=== PATIENT | male | born 1940 | race Caucasian/White ===

== ENCOUNTER 2017-10-06 19:19 | Observation (INO) | payer MEDICARE, OTHER ==
[2017-10-06 19:19] VITALS: BMI 29.0
[2017-10-06 20:56] LABS: BASO # 0.1 K/uL (0.0-0.2); BASO % 1.1 % (0.0-2.0); EOS # 0.1 K/uL (0.0-0.7); EOS % 2.5 % (0.0-4.0); HEMOGLOBIN 12.9 g/dL (12.0-18.0); LYMPH # 1.8 K/uL (1.0-4.3); LYMPH % 34.3 % (20.0-40.0); MEAN CELL VOLUME 89.8 fl (80.0-94.0); MEAN CORPUSCULAR HEMOGLOBIN 30.5 pg (27.0-31.0); MEAN CORPUSCULAR HGB CONC 33.9 g/dL (33.0-37.0); MEAN PLATELET VOLUME 7.4 fl (7.2-11.7); MONO # 0.3 K/uL (0.0-0.8); MONO % 6.3 % (0.0-10.0); NEUT # 2.9 K/uL (1.8-7.0); NEUT % 55.8 % (50.0-75.0); RBC 4.22 Mil/uL (4.40-5.90); RED CELL DISTRIBUTION WIDTH 13.4 % (11.5-14.5); WHITE BLOOD COUNT 5.2 K/uL (4.8-10.8)
[2017-10-06 21:00] LABS: INR 0.9; PROTHROMBIN TIME 10.4 Seconds (9.8-13.1)
[2017-10-06 21:10] LABS: PARTIAL THROMBOPLASTIN TIME 31.9 Seconds (25.6-37.1)
[2017-10-06 21:12] LABS: BLOOD UREA NITROGEN 18 mg/dl (9-20); CALCIUM 9.2 mg/dL (8.4-10.2); GFR AFRICAN-AMERICAN > 60; GFR NON-AFRICAN AMERICAN > 60
--- NOTE | 2017-10-06 21:20 | ED PDOC ---
HPI: Chest Pain Time Seen by Provider: 10/06/17 19:37 Chief Complaint (Nursing): Chest Pain Chief Complaint (Provider): Chest Pain History Per: Patient History/Exam Limitations: no limitations Onset/Duration Of Symptoms: Days (x2) Current Symptoms Are (Timing): Still Present Additional Complaint(s): 76 year old male with pmHx of HTN, HCL and prostate cancer, arrives to ED with complaints of constant chest pain radiating to back ongoing for 2 days. He reports associated dizziness, feeling clammy and pain with breathing. He denies any cough or chills. Patient reports compliance with mediations. PMD: none provided Past Medical History Reviewed: Historical Data, Nursing Documentation, Vital Signs Vital Signs: Last Vital Signs Temp 98.3 F 10/07/17 00:11 Pulse 71 10/07/17 00:11 Resp 15 10/07/17 00:11 BP 155/82 H 10/07/17 00:11 Pulse Ox 95 10/07/17 00:11 - Medical History PMH: HTN, Hypercholesterolemia Denies: Chronic Kidney Disease - Surgical History Surgical History: No Surg Hx - Family History Family History: States: Unknown Family Hx - Immunization History Hx Tetanus Toxoid Vaccination: No Hx Influenza Vaccination: Yes Hx Pneumococcal Vaccination: Yes - Home Medications Home Medications: Ambulatory Orders Medication Instructions Recorded Atorvastatin [Lipitor] 10 mg PO DAILY 05/25/13 Enzalutamide [Xtandi] 40 mg PO DAILY 10/06/17 Lisinopril [Zestril] 10 mg PO DAILY 10/07/17 - Allergies Allergies/Adverse Reactions: Allergies Allergy/AdvReac Type Severity Reaction Status Date / Time No Known Allergies Allergy Verified 05/25/13 11:14 Review of Systems ROS Statement: Except As Marked, All Systems Reviewed And Found Negative Constitutional: Positive for: Other (clammy). Negative for: Chills Cardiovascular: Positive for: Chest Pain Respiratory: Positive for: Pleuritic Pain. Negative for: Cough Musculoskeletal: Positive for: Back Pain Neurological: Positive for: Dizziness Physical Exam - Reviewed Nursing Documentation Reviewed: Yes Vital Signs Reviewed: Yes - Physical Exam Appears: Positive for: Well, Non-toxic, No Acute Distress Head Exam: Positive for: ATRAUMATIC, NORMAL INSPECTION, NORMOCEPHALIC Skin: Positive for: Normal Color Eye Exam: Positive for: Normal appearance, EOMI, PERRL ENT: Positive for: Normal ENT Inspection Neck: Positive for: Normal Cardiovascular/Chest: Positive for: Regular Rate, Rhythm. Negative for: Murmur , Bradycardia, Tachycardia Respiratory: Positive for: Normal Breath Sounds. Negative for: Wheezing, Respiratory Distress Gastrointestinal/Abdominal: Positive for: Normal Exam, Soft. Negative for: Tenderness Back: Positive for: Normal Inspection. Negative for: L CVA Tenderness, R CVA Tenderness Extremity: Positive for: Normal ROM. Negative for: Pedal Edema, Calf Tenderness Neurologic/Psych: Positive for: Alert, cuff stitcher II-XII (grossly intact), Oriented. Negative for: Motor/Sensory Deficits - Laboratory Results Result Diagrams: 10/06/17 20:48 10/06/17 20:48 - ECG ECG: Positive for: Interpreted By Me ECG Rhythm: Positive for: Normal QRS, Normal ST Segment, Sinus Rhythm Rate: 75 O2 Sat by Pulse Oximetry: 96 (RA) Pulse Ox Interpretation: Normal Medical Decision Making Medical Decision Making: A/P: 76 y/o male, pmHx of HTN and HCL, presenting with chest and back pain. Patient has normal vitals, well-appearing. Concern for ACS vs. PE vs. musculoskeletal pain vs. pneumothorax. Will obtain bloodwork and re-evaluate. -- CTA chest PE protocol --EKG --BMP --Troponin I --CBC --D Dimer --PTT --PT --CXR --Aspirin 162mg PO --------- Time: 2232 --CTA chest FINDINGS: Pulmonary arteries: Unremarkable. No pulmonary embolism. Aorta: The aorta demonstrates mild atherosclerotic calcification. No thoracic aortic aneurysm. Lungs: There is subpleural atelectasis of the dependent portions of the lungs. No mass. Pleural space: Unremarkable. No significant effusion. No pneumothorax. Heart: Coronary artery calcification. No significant pericardial effusion. No evidence of RV dysfunction. Bones/joints: No acute fracture. No dislocation. Soft tissues: Unremarkable. Lymph nodes: Unremarkable. No enlarged lymph nodes. IMPRESSION: No acute findings. No pulmonary embolism. 2235 Given patient's cardiac risk factors, age, and symptoms, will place in OBS for continuous cardiac monitoring, serial troponins. Case discussed with Dr. Melvin Scribe Attestation: Documented by Brenda Bernardo, acting as a scribe for Greg Castro MD. Provider Scribe Attestation: All medical record entries made by the Scribe were at my direction and personally dictated by me. I have reviewed the chart and agree that the record accurately reflects my personal performance of the history, physical exam, medical decision making, and the department course for this patient. I have also personally directed, reviewed, and agree with the discharge instructions and disposition. Disposition - Clinical Impression Clinical Impression: Chest pain - Disposition Disposition Time: 22:36 Condition: FAIR
[2017-10-06] MEDS ORDERED: Iodixanol 320 MG/ML 100 ML BOTTLE IV ONE (21:41)
[2017-10-06] MEDS ORDERED: Sodium Chloride 0.9% 50 ML IV ONE (21:41)
[2017-10-07] MEDS ORDERED: DiphenhydrAMINE 50 mg/ml Inj ONE (00:29)
[2017-10-07] MEDS ORDERED: Oxycodone/Acetaminophen 5/325 mg Tab PO PRN (01:11)
[2017-10-07] MEDS ORDERED: Oxycodone/Acetaminophen 5/325 mg Tab ONE (06:00)
[2017-10-07 07:10] LABS: HDL CHOLESTEROL 29 MG/DL (30-70)
[2017-10-07 07:21] LABS: LDL CHOLESTEROL 59 mg/dL (0-129)
[2017-10-07 07:27] LABS: T4 5.54 ug/dl (5.5-11.0)
--- NOTE | 2017-10-07 08:12 | CP.PCM.HP ---
History of Present Illness - History of Present Illness History of Present Illness: 76 YR OLD MALE WHO PRESENTED TO THE ER BECAUSE OF L SIDED PRECORDIAL CHEST PAINS X 2 DAYS,RADIATING TO THE L ARM.DENIES TRAUMA,PALPITATIONS OR SOB.STILL HAS SOME CHEST DISCOMFORT TODAY. HX OF HYPERTENSION AND HYPERLIPIDEMIA. NON-COMPLIANT TO DIET. UNREMARKABLE FAMILY HISTORY. FORMER SMOKER--QUIT MORE THAN 40 YRS AGO. Present on Admission - Present on Admission Any Indicators Present on Admission: Yes Past Patient History - Past Medical History & Family History Past Medical History?: Yes - Past Social History Smoking Status: Former Smoker - CARDIAC Hx Hypercholesterolemia: Yes Hx Hypertension: Yes - PULMONARY Hx Respiratory Disorders: No - NEUROLOGICAL Hx Neurological Disorder: No - HEENT Hx HEENT Problems: No - RENAL Hx Chronic Kidney Disease: No - ENDOCRINE/METABOLIC Hx Endocrine Disorders: No - HEMATOLOGICAL/ONCOLOGICAL Hx Cancer: Yes (prostate ca) - INTEGUMENTARY Hx Dermatological Problems: No - MUSCULOSKELETAL/RHEUMATOLOGICAL Hx Falls: No - GASTROINTESTINAL Hx Gastrointestinal Disorders: No - GENITOURINARY/GYNECOLOGICAL Hx Genitourinary Disorders: Yes Hx Prostate Cancer: Yes (malignant neoplasam) Other/Comment: BPH - PSYCHIATRIC Hx Psychophysiologic Disorder: No Hx Substance Use: No - SURGICAL HISTORY Hx Surgeries: Yes Other/Comment: Laser procedure done by urologist 2010 - ANESTHESIA Hx Anesthesia: Yes Hx Anesthesia Reactions: No Hx Malignant Hyperthermia: No Meds Allergies/Adverse Reactions: Allergies Allergy/AdvReac Type Severity Reaction Status Date / Time No Known Allergies Allergy Verified 05/25/13 11:14 Physical Exam - Constitutional Appears: Non-toxic Additional comments: MILD L SIDED CHEST PAIN - Head Exam Head Exam: ATRAUMATIC, NORMAL INSPECTION, NORMOCEPHALIC - Eye Exam Eye Exam: EOMI, Normal appearance, PERRL Pupil Exam: NORMAL ACCOMODATION, PERRL - ENT Exam ENT Exam: Mucous Membranes Moist, Normal Exam - Neck Exam Neck exam: Positive for: Normal Inspection - Respiratory Exam Respiratory Exam: Clear to Auscultation Bilateral, NORMAL BREATHING PATTERN - Cardiovascular Exam Cardiovascular Exam: REGULAR RHYTHM - GI/Abdominal Exam GI & Abdominal Exam: Normal Bowel Sounds, Soft. absent: Tenderness - Rectal Exam Rectal Exam: NORMAL INSPECTION - Extremities Exam Extremities exam: Positive for: normal inspection - Back Exam Back exam: NORMAL INSPECTION - Neurological Exam Neurological exam: Alert, CN II-XII Intact, Normal Gait, Oriented x3, Reflexes Normal - Psychiatric Exam Psychiatric exam: Normal Affect, Normal Mood - Skin Skin Exam: Dry, Intact, Normal Color, Warm Results - Vital Signs Recent Vital Signs: Last Vital Signs Temp 98.5 F 10/07/17 06:03 Pulse 68 10/07/17 06:03 Resp 17 10/07/17 06:03 BP 153/76 H 10/07/17 06:03 Pulse Ox 96 10/07/17 06:03 - Labs Result Diagrams: 10/06/17 20:48 10/06/17 20:48 Labs: Laboratory Results - last 24 hr 10/06/17 10/06/17 10/06/17 20:48 20:48 20:48 WBC 5.2 RBC 4.22 L Hgb 12.9 Hct 37.9 MCV 89.8 MCH 30.5 MCHC 33.9 RDW 13.4 Plt Count 216 MPV 7.4 Neut % (Auto) 55.8 Lymph % (Auto) 34.3 [place] % (Auto) 6.3 Eos % (Auto) 2.5 Baso % (Auto) 1.1 Neut # (Auto) 2.9 Lymph # (Auto) 1.8 [place] # (Auto) 0.3 Eos # (Auto) 0.1 Baso # (Auto) 0.1 PT 10.4 INR 0.9 APTT 31.9 D-Dimer, Quantitative 505 H Sodium 139 Potassium 4.4 Chloride 102 Carbon Dioxide 25 Anion Gap 16 BUN 18 Creatinine 0.8 Est GFR ( Amer) > 60 Est GFR (Non-Af Amer) > 60 Random Glucose 110 Calcium 9.2 Troponin I < 0.0120 Triglycerides Cholesterol LDL Cholesterol Direct HDL Cholesterol Thyroxine (T4) TSH 3rd Generation 10/07/17 05:30 WBC RBC Hgb Hct MCV MCH MCHC RDW Plt Count MPV Neut % (Auto) Lymph % (Auto) [place] % (Auto) Eos % (Auto) Baso % (Auto) Neut # (Auto) Lymph # (Auto) [place] # (Auto) Eos # (Auto) Baso # (Auto) PT INR APTT D-Dimer, Quantitative Sodium Potassium Chloride Carbon Dioxide Anion Gap BUN Creatinine Est GFR ( Amer) Est GFR (Non-Af Amer) Random Glucose Calcium Troponin I < 0.0120 Triglycerides 518 H Cholesterol 186 LDL Cholesterol Direct 59 HDL Cholesterol 29 L Thyroxine (T4) 5.54 TSH 3rd Generation 3.55 Assessment & Plan - Assessment and Plan (Free Text) Assessment: CHEST PAIN--R/O ACUTE CORONARY SYNDROME HYPERTENSION MIXED HYPERLIPIDEMIA Plan: CONTINUE RX ORDERED CARDIOLOGY EVALUATION - Date & Time Date: 10/07/17 Time: 08:15
[2017-10-07] MEDS ORDERED: Enoxaparin 40 mg Syringe SC SCH (09:00)
--- NOTE | 2017-10-07 09:17 | CARD ---
APPROVED REPORT Date of service: 10/06/2017 EKG Measurement Heart [id number] <Conclusion> Normal sinus rhythm Normal ECG
--- NOTE | 2017-10-07 11:25 | CP.PCM.DIS ---
Provider - Provider Date of Admission: 10/06/17 22:36 Attending physician: Vikram Melvin MD Time Spent in preparation of Discharge (in minutes): 30 Diagnosis - Discharge Diagnosis (1) Hyperlipidemia Status: Acute (2) Hypertension Status: Acute (3) Chest pain Status: Acute (4) Prostate cancer Status: Acute Hospital Course - Lab Results Lab Results: Most Recent Lab Values WBC 5.2 K/uL (4.8-10.8) 10/06/17 20:48 RBC 4.22 Mil/uL (4.40-5.90) L 10/06/17 20:48 Hgb 12.9 g/dL (12.0-18.0) 10/06/17 20:48 Hct 37.9 % (35.0-51.0) 10/06/17 20:48 MCV 89.8 fl (80.0-94.0) 10/06/17 20:48 MCH 30.5 pg (27.0-31.0) 10/06/17 20:48 MCHC 33.9 g/dL (33.0-37.0) 10/06/17 20:48 RDW 13.4 % (11.5-14.5) 10/06/17 20:48 Plt Count 216 K/uL (130-400) 10/06/17 20:48 MPV 7.4 fl (7.2-11.7) 10/06/17 20:48 Neut % (Auto) 55.8 % (50.0-75.0) 10/06/17 20:48 Lymph % (Auto) 34.3 % (20.0-40.0) 10/06/17 20:48 [place] % (Auto) 6.3 % (0.0-10.0) 10/06/17 20:48 Eos % (Auto) 2.5 % (0.0-4.0) 10/06/17 20:48 Baso % (Auto) 1.1 % (0.0-2.0) 10/06/17 20:48 Neut # (Auto) 2.9 K/uL (1.8-7.0) 10/06/17 20:48 Lymph # (Auto) 1.8 K/uL (1.0-4.3) 10/06/17 20:48 [place] # (Auto) 0.3 K/uL (0.0-0.8) 10/06/17 20:48 Eos # (Auto) 0.1 K/uL (0.0-0.7) 10/06/17 20:48 Baso # (Auto) 0.1 K/uL (0.0-0.2) 10/06/17 20:48 PT 10.4 Seconds (9.8-13.1) 10/06/17 20:48 INR 0.9 10/06/17 20:48 APTT 31.9 Seconds (25.6-37.1) 10/06/17 20:48 D-Dimer, Quantitative 505 ng/mlDDU (0-230) H 10/06/17 20:48 Sodium 139 mmol/l (132-148) 10/06/17 20:48 Potassium 4.4 MMOL/L (3.6-5.0) 10/06/17 20:48 Chloride 102 mmol/L (98-107) 10/06/17 20:48 Carbon Dioxide 25 mmol/L (22-30) 10/06/17 20:48 Anion Gap 16 (10-20) 10/06/17 20:48 BUN 18 mg/dl (9-20) 10/06/17 20:48 Creatinine 0.8 mg/dl (0.8-1.5) 10/06/17 20:48 Est GFR ( Amer) > 60 10/06/17 20:48 Est GFR (Non-Af Amer) > 60 10/06/17 20:48 Random Glucose 110 mg/dL (75-110) 10/06/17 20:48 Calcium 9.2 mg/dL (8.4-10.2) 10/06/17 20:48 Troponin I < 0.0120 ng/mL (0.00-0.120) 10/07/17 05:30 Triglycerides 518 mg/DL (0-149) H 10/07/17 05:30 Cholesterol 186 mg/dL (0-199) 10/07/17 05:30 LDL Cholesterol Direct 59 mg/dL (0-129) 10/07/17 05:30 HDL Cholesterol 29 MG/DL (30-70) L 10/07/17 05:30 Thyroxine (T4) 5.54 ug/dl (5.5-11.0) 10/07/17 05:30 TSH 3rd Generation 3.55 mIU/ML (0.46-4.68) 10/07/17 05:30 - Hospital Course Hospital Course: CHEST PAIN FREE CLEARED FOR DISCHARGE BY CARDIOLOGY Discharge Exam - Head Exam Head Exam: ATRAUMATIC, NORMAL INSPECTION, NORMOCEPHALIC - Eye Exam Eye Exam: EOMI, Normal appearance, PERRL Pupil Exam: NORMAL ACCOMODATION, PERRL - GI/Abdominal Exam GI & Abdominal Exam: Normal Bowel Sounds - Rectal Exam Rectal Exam: NORMAL INSPECTION - Neurological Exam Neurological exam: Alert, CN II-XII Intact, Normal Gait, Oriented x3, Reflexes Normal - Psychiatric Exam Psychiatric exam: Normal Affect, Normal Mood - Skin Skin Exam: Dry, Intact, Normal Color, Warm Discharge Plan - Follow Up Plan Condition: FAIR Disposition: HOME/ ROUTINE Patient education suggested?: Yes Additional Instructions: FOLLOW UP WITH PMD FOR FURTHER EVALUATION[CARDIOLOGY AND ONCOLOGY FOLLOW UP]
--- NOTE | 2017-10-07 11:28 | CP.PCM.CON ---
History of Present Illness - History of Present Illness History of Present Illness: This 76-year-old man was seen at Dr. Melvin's request. He came to the emergency room complaining of a left pectoral ache which had lasted approximately a day prior to coming to the emergency room. Yesterday evening it gradually resolved and reappeared early this morning which required giving him analgesics. The patient has been observed in the emergency room overnight. The patient is a hypertensive who denies any history of diabetes of smoking and is being treated for prostatic malignancy as well. He remains physically fairly active and is able to walk 4-5 blocks without any difficulty. He has never experienced effort related chest pain. The chest discomfort which brought him to the emergency room did not radiate into his jaw or arms and was not accompanied by any perspiration or nausea or vomiting. Physical examination shows a elderly man who is alert awake coherent free of any chest pain. His heart rate was 74 bpm regular and his blood pressure was 122 /74 mmHg. His jugular venous pressure was not elevated and there was no edema over his lower ex images. The pedal pulses were well felt. The apex was not palpable there was no tenderness in the precordium. The first and second heart sounds are normal. There was no murmur or gallop. There were no rales. His abdomen was soft and liver and spleen are not palpable. His electric cardiac gram showed sinus rhythm with a normal EKG pattern without any evidence of ST-T abnormalities suggestive of myocardial ischemia. His troponin levels were consistently normal indicating no evidence of myocyte injury. Impression: Atypical chest pain with no evidence of acute coronary syndrome. History of hypertension and prostatic malignancy. The patient is stable from cardiovascular point of view and may return home to be managed as an outpatient. I have discussed his case with Dr. Melvin. Past Patient History - Past Medical History & Family History Past Medical History?: Yes - Past Social History Smoking Status: Former Smoker - CARDIAC Hx Hypercholesterolemia: Yes Hx Hypertension: Yes - PULMONARY Hx Respiratory Disorders: No - NEUROLOGICAL Hx Neurological Disorder: No - HEENT Hx HEENT Problems: No - RENAL Hx Chronic Kidney Disease: No - ENDOCRINE/METABOLIC Hx Endocrine Disorders: No - HEMATOLOGICAL/ONCOLOGICAL Hx Cancer: Yes (prostate ca) - INTEGUMENTARY Hx Dermatological Problems: No - MUSCULOSKELETAL/RHEUMATOLOGICAL Hx Falls: No - GASTROINTESTINAL Hx Gastrointestinal Disorders: No - GENITOURINARY/GYNECOLOGICAL Hx Genitourinary Disorders: Yes Hx Prostate Cancer: Yes (malignant neoplasam) Other/Comment: BPH - PSYCHIATRIC Hx Psychophysiologic Disorder: No Hx Substance Use: No - SURGICAL HISTORY Hx Surgeries: Yes Other/Comment: Laser procedure done by urologist 2010 - ANESTHESIA Hx Anesthesia: Yes Hx Anesthesia Reactions: No Hx Malignant Hyperthermia: No Meds Allergies/Adverse Reactions: Allergies Allergy/AdvReac Type Severity Reaction Status Date / Time No Known Allergies Allergy Verified 05/25/13 11:14 - Medications Medications: Current Medications Aspirin (Ecotrin) 81 mg PO DAILY [facility] Last Admin: 10/07/17 09:08 Dose: 81 mg Atorvastatin Calcium (Lipitor) 40 mg PO HS JEANNINE Enoxaparin Sodium (Lovenox) 40 mg SC DAILY [facility] PRN Reason: Protocol Last Admin: 10/07/17 09:08 Dose: 40 mg Home Med (Enzalutamide [Xtandi]) 40 mg PO DAILY [facility] Lisinopril (Zestril) 10 mg PO DAILY [facility] Last Admin: 10/07/17 09:06 Dose: 10 mg Oxycodone/Acetaminophen (Percocet 5/325 Mg Tab) 1 tab PO Q4 PRN PRN Reason: Pain, severe (8-10) Stop: 10/10/17 01:12 Last Admin: 10/07/17 06:03 Dose: 1 tab Results - Vital Signs Recent Vital Signs: Last Vital Signs Temp 97.8 F 10/07/17 09:15 Pulse 77 10/07/17 09:15 Resp 22 10/07/17 09:15 BP 141/77 10/07/17 09:15 Pulse Ox 93 L 10/07/17 09:15 - Labs Result Diagrams: 10/06/17 20:48 10/06/17 20:48 Labs: Laboratory Results - last 24 hr 10/06/17 10/06/17 10/06/17 20:48 20:48 20:48 WBC 5.2 RBC 4.22 L Hgb 12.9 Hct 37.9 MCV 89.8 MCH 30.5 MCHC 33.9 RDW 13.4 Plt Count 216 MPV 7.4 Neut % (Auto) 55.8 Lymph % (Auto) 34.3 [place] % (Auto) 6.3 Eos % (Auto) 2.5 Baso % (Auto) 1.1 Neut # (Auto) 2.9 Lymph # (Auto) 1.8 [place] # (Auto) 0.3 Eos # (Auto) 0.1 Baso # (Auto) 0.1 PT 10.4 INR 0.9 APTT 31.9 D-Dimer, Quantitative 505 H Sodium 139 Potassium 4.4 Chloride 102 Carbon Dioxide 25 Anion Gap 16 BUN 18 Creatinine 0.8 Est GFR ( Amer) > 60 Est GFR (Non-Af Amer) > 60 Random Glucose 110 Calcium 9.2 Troponin I < 0.0120 Triglycerides Cholesterol LDL Cholesterol Direct HDL Cholesterol Thyroxine (T4) TSH 3rd Generation 10/07/17 05:30 WBC RBC Hgb Hct MCV MCH MCHC RDW Plt Count MPV Neut % (Auto) Lymph % (Auto) [place] % (Auto) Eos % (Auto) Baso % (Auto) Neut # (Auto) Lymph # (Auto) [place] # (Auto) Eos # (Auto) Baso # (Auto) PT INR APTT D-Dimer, Quantitative Sodium Potassium Chloride Carbon Dioxide Anion Gap BUN Creatinine Est GFR ( Amer) Est GFR (Non-Af Amer) Random Glucose Calcium Troponin I < 0.0120 Triglycerides 518 H Cholesterol 186 LDL Cholesterol Direct 59 HDL Cholesterol 29 L Thyroxine (T4) 5.54 TSH 3rd Generation 3.55
--- NOTE | 2017-10-07 11:48 | CT ---
Date of service: 10/06/2017 PROCEDURE: CT Chest with contrast (Pulmonary Angiogram) HISTORY: chest pain, r/o PE COMPARISON: None available. TECHNIQUE: Axial computed tomography images were obtained of the chest in the pulmonary arterial phase of enhancement. Coronal and sagittal reformatted images were created and reviewed. Maximum intensity projection (MIP) reconstructed images in the following planes: Axial only. Intravenous contrast dose: 68 cc Visipaque 320. Mean Hounsfield unit values in the main pulmonary artery: 303.20 Radiation dose: Total exam DLP = 331.04 mGy-cm. This CT exam was performed using one or more of the following dose reduction techniques: Automated exposure control, adjustment of the mA and/or kV according to patient size, and/or use of iterative reconstruction technique. FINDINGS: PULMONARY ARTERIES: Unremarkable. No pulmonary embolism. AORTA: No acute findings. No thoracic aortic aneurysm. LUNGS: Unremarkable. No nodule, mass or pulmonary consolidation. PLEURAL SPACES: Unremarkable. No effusion or pneumothorax. HEART: Unremarkable. No cardiomegaly. No significant pericardial effusion. LYMPH NODES: No lymphadenopathy. BONES, CHEST WALL: Unremarkable. No fracture or destructive lesion OTHER FINDINGS: Unremarkable. IMPRESSION: Unremarkable CT pulmonary angiogram. No pulmonary embolus. Concordant results (preliminary interpretation) provided by [facility]. Procedure Completed: 22:08 Preliminary ([facility]) Report: Dictated and Authenticated: 22:33. Final Interpretation: 11:46. October 07, 2017.
[2017-10-07 12:00] VITALS: RESP 20; O2SAT 98
[2017-10-07 12:02] VITALS: BP 150/70; PULSE 76; TEMP 98
== END 2017-10-07 12:10 | disposition home or self-care (01) ==
LOC: H.ER 19:19 → H.ERHOLD 22:36
PROVIDERS: ADMIT Internal Medicine Pulmonary Disease; ATTEND Internal Medicine Pulmonary Disease
DX: R07.89 Other chest pain (principal); I10 Essential (primary) hypertension; E78.2 Mixed hyperlipidemia; N40.0 Benign prostatic hyperplasia without lower urinary tract symptoms; Z91.19 Patient's noncompliance with other medical treatment and regimen; Z85.46 Personal history of malignant neoplasm of prostate; Z87.891 Personal history of nicotine dependence; Z79.82 Long term (current) use of aspirin
CPT/HCPCS: 71046; 71275; 80048; 80061; 84436; 84443; 84484; 85025; 85378; 85610; 85730; 93005; 96372; 96374; 99284; G0378; J1650; J1885; Q9967